=== PATIENT | male | born 1995 | race African-American/Black ===

== ENCOUNTER 2021-01-12 17:41 | Inpatient (IN) | payer MEDICAID ==
[~2021-01-12] VITALS: Ht 172.7 cm; Wt 61.4 kg
[2021-01-12] MEDS ORDERED: normal saline 1000ML IV soln IVB ONE (18:15)
[2021-01-12 18:51] LABS: BASOPHILS % (AUTO) 0.2 % (0-1); EOSINOPHILS # (AUTO) 0.2 X10'3 (0-0.9); EOSINOPHILS % (AUTO) 1.9 % (0-6); HEMATOCRIT 38.6 % (42.0-52.0); HEMOGLOBIN 13.1 g/dl (14.0-17.9); LYMPHOCYTES # (AUTO) 1.9 X10'3 (1.1-4.8); LYMPHOCYTES % (AUTO) 19.1 % (21-51); MEAN CORPUSCULAR HEMOGLOBIN 30.3 PG (27.0-31.0); MEAN CORPUSCULAR HGB CONC 33.9 g/dL (33.0-36.5); MEAN CORPUSCULAR VOLUME 89.5 FL (78-98); MEAN PLATELET VOLUME 7.2 FL (7.4-10.4); MONOCYTES # (AUTO) 0.7 X10'3 (0-0.9); MONOCYTES % (AUTO) 7.2 % (2-12); NEUTROPHILS # (AUTO) 7.2 X10'3 (1.8-7.7); NEUTROPHILS % (AUTO) 71.6 % (42-75); PLATELET COUNT 248 X10'3 (140-440); RED BLOOD COUNT 4.32 X10'6 (4.70-6.10); RED CELL DISTRIBUTION WIDTH 12.8 % (11.5-14.5)
[2021-01-12 19:04] LABS: ALANINE AMINOTRANSFERASE 23 U/L (12-78); ALBUMIN 3.8 G/DL (3.4-5.0); ALBUMIN/GLOBULIN RATIO 1.1 (1.1-1.5); ALKALINE PHOSPHATASE 77 IU/L (46-116); ANION GAP 11 (8-16); ASPARTATE AMINO TRANSFERASE 13 U/L (10-37); BILIRUBIN,TOTAL 0.3 MG/DL (0.1-1.0); BLOOD UREA NITROGEN 12 MG/DL (7-18); BUN/CREATININE RATIO 10.1 (5.4-32.0); CALCIUM 8.7 MG/DL (8.5-10.1); CHLORIDE 105 MMOL/L (99-107); CREATININE 1.19 MG/DL (0.60-1.10); GLUCOSE 96 MG/DL (70-104); POTASSIUM 3.7 MMOL/L (3.5-5.1); SODIUM 142 MMOL/L (135-145); TOTAL CARBON DIOXIDE 26.5 MMOL/L (24-32); TOTAL PROTEIN 7.2 G/DL (6.4-8.2); eGFR 76 ML/MIN
[2021-01-12] MEDS ORDERED: NO HOME MEDS (20:06)
[2021-01-12] MEDS ORDERED: mag hydrox/Alum hydrox/simeth 30ml oral suspension PO PRN (21:45)
[2021-01-12] MEDS ORDERED: morphine 2 MG/ML inj. syringe IV PRN ×2 (21:45)
[2021-01-12] MEDS ORDERED: magnesium hydroxide 30ml (MOM) UD suspension PO PRN (21:45)
[2021-01-12] MEDS ORDERED: acetaminophen 325mg tablet PO PRN ×2 (21:45)
[2021-01-12] MEDS ORDERED: ondansetron/PF 4mg/2ml inj IV PRN (21:45)
[2021-01-12] MEDS: normal saline 1000ml 1,000 ML IV SCH (22:21)
[2021-01-13] MEDS: normal saline 1000ml 1,000 ML IV SCH ×3 (07:56→23:46)
[2021-01-13] MEDS: docusate sod 100mg capsule PO SCH ×2 (08:00→19:17)
[2021-01-13 23:00] VITALS: BP 121/73
[2021-01-14 02:00] VITALS: BP 94/48
--- NOTE | 2021-01-14 06:14 | NUR ---
Problems reprioritized. Patient report given, questions answered & plan of care reviewed with JAC Giraldo.
--- NOTE | 2021-01-14 06:23 | NUR ---
Patient in room MED 315. I have received report from IRMA NATHAN and had the opportunity to ask questions and assume patient care.
--- NOTE | 2021-01-14 06:52 | NUR ---
Problems reprioritized. Patient report given, questions answered & plan of care reviewed with JAC Giraldo.
[2021-01-14 07:06] VITALS: BP 115/48
[2021-01-14 07:09] VITALS: BP_SYST 109; BP_SYST 146; BP_DIAS 46; BP_DIAS 73
[2021-01-14] MEDS: docusate sod 100mg capsule PO SCH (08:00)
[2021-01-14 10:00] VITALS: BP 120/64
[2021-01-14 12:44] LABS: BASOPHILS % (AUTO) 0.5 % (0-1); EOSINOPHILS # (AUTO) 0.1 X10'3 (0-0.9); EOSINOPHILS % (AUTO) 2.3 % (0-6); LYMPHOCYTES # (AUTO) 1.9 X10'3 (1.1-4.8); LYMPHOCYTES % (AUTO) 30.5 % (21-51); MEAN CORPUSCULAR HEMOGLOBIN 30.1 PG (27.0-31.0); MEAN CORPUSCULAR HGB CONC 33.3 g/dL (33.0-36.5); MEAN CORPUSCULAR VOLUME 90.4 FL (78-98); MEAN PLATELET VOLUME 7.5 FL (7.4-10.4); MONOCYTES # (AUTO) 0.5 X10'3 (0-0.9); MONOCYTES % (AUTO) 8.7 % (2-12); NEUTROPHILS # (AUTO) 3.6 X10'3 (1.8-7.7); PLATELET COUNT 236 X10'3 (140-440); RED BLOOD COUNT 4.31 X10'6 (4.70-6.10); RED CELL DISTRIBUTION WIDTH 12.9 % (11.5-14.5); WHITE BLOOD COUNT 6.1 X10'3 (4.5-11.0)
[2021-01-14 12:45] LABS: ALBUMIN 3.6 G/DL (3.4-5.0); ANION GAP 10 (8-16); BLOOD UREA NITROGEN 13 MG/DL (7-18); BUN/CREATININE RATIO 10.6 (5.4-32.0); CALCIUM 8.7 MG/DL (8.5-10.1); CHLORIDE 106 MMOL/L (99-107); CREATININE 1.23 MG/DL (0.60-1.10); GLUCOSE 103 MG/DL (70-104); POTASSIUM 3.8 MMOL/L (3.5-5.1); SODIUM 144 MMOL/L (135-145); TOTAL CARBON DIOXIDE 27.9 MMOL/L (24-32); eGFR 88 ML/MIN
[2021-01-14 14:00] VITALS: BP 125/68
--- NOTE | 2021-01-14 15:25 | NUR ---
Pt DC to home with mom. Pt is A & O x4 and in no apparent distress. pt and mom verbalized understanding of all DC orders and the importance of following up with Orthopedic Podiatrist and PCP within 1-2 weeks. Pt educated about smoking and bradycardia. Given information about syncope and staying hydrated. Pt's IV cath removed intact. Pt and mom declined a wheelchair and wanted to walk tot he front where pt's aunt picked them up.
== END 2021-01-14 15:25 | disposition home or self-care (01) | DRG 204 ==
LOC: ER 17:42 → ED HOLD 21:45 → EDBEDREQ 01-13 21:52 → MED 3N 01-13 23:00
PROVIDERS: ADMIT Internal Medicine; ATTEND Internal Medicine
DX: R55 Syncope and collapse (principal); F12.90 Cannabis use, unspecified, uncomplicated; F84.0 Autistic disorder; N28.9 Disorder of kidney and ureter, unspecified; R00.1 Bradycardia, unspecified
CPT/HCPCS: 36415; 70544; 70551; 71045; 80048; 80053; 84443; 85025; 87081; 93005; 93306; 93880; 99285; G0378; J7030

== ENCOUNTER 2021-12-28 10:14 | Outpatient (CLI) | payer MEDICAID ==
[2021-12-28] VITALS (18 sets, daily range): BP systolic 85–133; BP diastolic 23–103
== END 2021-12-28 23:59 | disposition home or self-care (01) ==
LOC: CARD DIAG 10:14
PROVIDERS: ATTEND Family Medicine
DX: R55 Syncope and collapse (principal)
CPT/HCPCS: 93660

== ENCOUNTER 2025-01-05 10:26 | Emergency (ER) | payer MEDICAID ==
[~2025-01-05] VITALS: Ht 177.8 cm; Wt 69.1 kg
[2025-01-05 11:24] VITALS: BP 120/63; PULSE 64; RESP 16; TEMP 98.4; O2SAT 99
--- NOTE | 2025-01-05 11:26 | Physician Documentation ---
History of Present Illness ~ Chief Complaint: Seizure Stated Complaint: "HAD A SEIZURE" Time Seen by MD: 11:09 Source: patient, family Mode of Arrival: POV Exam Limitations: no limitations HPI 29-year-old male who is here due to episode that occurred yesterday where he got up from the couch and stated that he did not feel well and he then passed out. Mother states that he has had several of these episodes in his had an exhaustive workup by Neurology including an EEG which was negative. Mother states after he passed out he was really sweaty. There was no trauma to tongue or loss of bowel or bladder control. Patient did not have palpitations, chest pain, shortness of breath. He states he feels completely fine now. He attributes the syncopal episode did not eating anything yesterday or consuming enough water as he states his primary care provider Dr. Aguilar has talked with him about this being likely a contributing factor. Patient is not on any medications. He states he feels completely fine now. He did not hit his head when he passed out or injure himself. Medication Reconciliation Allergies: Coded Allergies: No Known Allergies (Unverified , 01/05/25) No Active Prescriptions or Reported Meds Past Medical History Past Medical History: *PSYCH* Past Surgical History: noncontributory Drug Use: marijuana Lives with: Family Lives In: Home Review of Systems All Other Systems at this time: Reviewed and Negative Physical Exam Vital Signs: Temperature: 98.4, Source: Temporal, Heart Rate: 64, Respiratory Rate: 16, BP: 131/56, Pulse Oximetry: 99, Weight: 69.100 Oxygen Flow Rate: 0 Physical Exam General Appearance: Alert, WD/WN. NAD. HEENT: NCAT, PERRL, EOMI. Neck: Supple, trachea midline. Cardiovascular: RRR. No m/r/g. Lungs: CTAB. Breathing unlabored Extremities: Normal inspection. No edema. Skin: Warm/dry, normal color Neurological: Alert and oriented x4, normal gait. Psychiatric: Affect congruent with mood. Progress Results/Orders Results/Orders Vital Signs 01/05/25 10:28 Temp 98.4 Pulse 64 Resp 16 B/P (MAP) 131/56 Pulse Ox 99 O2 Flow Rate 0 Medical Decision Making Additional information obtaine: N/A Findings n/a Differential Dx:Considerations: Include: anemia, CVA, cerebral occlusion, cerebral thrombosis, dehydration, dysrhythmia, electrolyte disorder, encephalopathy, hypoglycemia, hypovolemia, labyrinthitis, Meniere's disease, myocardial infarction, pulmonary embolus, TIA, vasovagal, VBI, vertigo central, vertigo peripheral, vestibular neuronitis, other Departure Time of Disposition: 11:24 Disposition: 01 HOME / SELF CARE / HOMELESS Impression: Primary Impression: Orthostatic syncope Condition: Stable Discharge Instructions: Syncope, Adult, [id number] Additional Instructions: Symptoms are consistent with passing out likely due to a drop in your blood pressure considering it occurred after you stood up. This can be related to inadequate fluid and p.o. intake as well as other factors. Follow up with her primary care provider Dr. Aguilar and make sure you consume fluids and eat regularly like he is discussed with the you in the past. Consider tilt-table test if this occurs again as well as Holter monitor Referrals: NO PRIMARY CARE PROVIDER (PCP) Prescriptions No Active Prescriptions or Reported Meds Education Educated: Patient Educated regarding: diagnosis, treatment, need for follow up Signature Scribe Signature: x Attestation: AMBREEN Scott Jan 05, 2025 11:26
== END 2025-01-05 11:30 | disposition home or self-care (01) ==
LOC: ER 10:27
DX: R55 Syncope and collapse (principal); R56.9 Unspecified convulsions; F12.90 Cannabis use, unspecified, uncomplicated
CPT/HCPCS: 99282